=== PATIENT | female | born 1985 | race Caucasian/White ===

== ENCOUNTER → 2016-11-05 | Outpatient (CLI) | payer OTHER ==
[~2016-11-05] MED LIST: ACET-749 PO; LEVO-519 PO; MTR600X PO; PRENTAB26 PO; SYN125 PO
[2016-11-05 18:47] LABS: URINE APPEARANCE TURBID (CLEAR); URINE BILIRUBIN NEG (NEG); URINE COLOR YELLOW; URINE NITRITE NEG (NEG); URINE PH 5.5 (4.5-7.5); URINE SPECIFIC GRAVITY 1.028 (1.000-1.030); UROBILINOGEN NEG (NEG)
[2016-11-05 18:49] LABS: MANUAL MICROSCOPIC REQUIRED? NO; REVIEW REQ? NO
== END | disposition home or self-care (01) ==
LOC: C.LABSPEC 17:55
PROVIDERS: ATTEND Obstetrics & Gynecology
DX: O09.40 Supervision of pregnancy with grand multiparity, unspecified trimester (principal)

== ENCOUNTER → 2016-11-12 | Outpatient (CLI) | payer OTHER ==
[2016-11-12 11:18] LABS: BASO % 0.2 %; BASO ABS # 0.01 K/uL (0-0.2); COMPLETE YES; EOS % 0.6 %; HEMATOCRIT 37.4 % (37-47); IG% 0.2 %; LYMPH ABS # 1.56 K/uL (1.2-3.4); MEAN CORPUSCULAR HEMOGLOBIN 31.3 pg (25-34); MEAN CORPUSCULAR HGB CONC 35.6 g/dl (32-36); MEAN PLATELET VOLUME 9.6 fL (7.4-10.4); PLATELET COUNT 159 K/uL (130-400); RED BLOOD COUNT 4.25 M/uL (4.2-5.4); WHITE BLOOD COUNT 5.03 K/uL (4.8-10.8)
[2016-11-12 11:50] LABS: THYROID STIMULATING HORMONE 1.9 uIu/ml (0.300-4.500)
== END | disposition home or self-care (01) ==
LOC: C.LAB1850 10:39
PROVIDERS: ATTEND Family Medicine
DX: E03.9 Hypothyroidism, unspecified (principal); O99.280 Endocrine, nutritional and metabolic diseases complicating pregnancy, unspecified trimester; O09.41 Supervision of pregnancy with grand multiparity, first trimester; J01.90 Acute sinusitis, unspecified

== ENCOUNTER → 2016-11-12 | Outpatient (CLI) | payer OTHER ==
[2016-11-16 11:57] LABS: CHLAMYDIA TRACH RNA*** NOT DETECTED (NOT DETECTED); GC (NEIS GONORRHOEAE)RNA** NOT DETECTED (NOT DETECTED)
== END | disposition home or self-care (01) ==
LOC: C.LABSPEC 14:15
PROVIDERS: ATTEND Obstetrics & Gynecology
DX: O09.41 Supervision of pregnancy with grand multiparity, first trimester (principal)

== ENCOUNTER → 2016-11-12 | Outpatient (CLI) | payer OTHER | END | disposition home or self-care (01) | LOC: C.PAPS 08:11 | PROVIDERS: ATTEND Obstetrics & Gynecology | DX: O09.41 Supervision of pregnancy with grand multiparity, first trimester (principal) ==

== ENCOUNTER → 2016-12-05 | Outpatient (CLI) | payer OTHER | END | disposition home or self-care (01) | LOC: C.LABBC 09:05 | PROVIDERS: ATTEND Internal Medicine | DX: R05 Cough (principal) ==

== ENCOUNTER → 2016-12-21 | Outpatient (CLI) | payer OTHER | END | disposition home or self-care (01) | LOC: C.LAB1850 16:36 | PROVIDERS: ATTEND Family Medicine | DX: E03.9 Hypothyroidism, unspecified (principal); O99.280 Endocrine, nutritional and metabolic diseases complicating pregnancy, unspecified trimester ==

== ENCOUNTER → 2016-12-22 | Outpatient (CLI) | payer OTHER ==
[2016-12-22 18:01] LABS: GTGD 50 Grams
[2016-12-28 17:00] LABS: AFP CONCENTRATION 23.5 NG/ML; AFP MULTIPLE OF MEDIAN 0.71; AFPTS GESTATIONAL AGE 16.9 WEEKS; AFPTS INSULIN DEP DIABETIC? NO; AFPTS MATERNAL WT 172 LBS; ALPHA-FETOPROTEIN RACE CAUCASIAN=W; HISTORY OF NTD NO; REPEAT SAMPLE? NO
== END | disposition home or self-care (01) ==
LOC: C.LAB1850 13:49
PROVIDERS: ATTEND Obstetrics & Gynecology
DX: O09.42 Supervision of pregnancy with grand multiparity, second trimester (principal); Z3A.00 Weeks of gestation of pregnancy not specified

== ENCOUNTER → 2017-01-13 | Outpatient (CLI) | payer OTHER ==
[2017-01-13 12:41] LABS: THYROID STIMULATING HORMONE 1.43 uIu/ml (0.300-4.500)
== END | disposition home or self-care (01) ==
LOC: C.LAB1850 10:26
PROVIDERS: ATTEND Internal Medicine Endocrinology, Diabetes & Metabolism
DX: E03.9 Hypothyroidism, unspecified (principal)

== ENCOUNTER → 2017-02-19 | Outpatient (CLI) | payer OTHER ==
[2017-02-19 10:08] LABS: THYROID STIMULATING HORMONE 0.974 uIu/ml (0.300-4.500)
== END | disposition home or self-care (01) ==
LOC: C.LAB1850 08:46
PROVIDERS: ATTEND Internal Medicine Endocrinology, Diabetes & Metabolism
DX: E03.9 Hypothyroidism, unspecified (principal)

== ENCOUNTER → 2017-03-22 | Outpatient (CLI) | payer OTHER ==
[2017-03-22 12:22] LABS: HEMATOCRIT 38.2 % (37-47)
[2017-03-22 12:26] LABS: URINE APPEARANCE CLEAR (CLEAR); URINE BILIRUBIN NEG (NEG); URINE COLOR YELLOW; URINE EPITHELIAL CELL AUTO >30 /lpf (0-5); URINE NITRITE NEG (NEG); URINE PH 7.5 (4.5-7.5); URINE SPECIFIC GRAVITY 1.015 (1.000-1.030); UROBILINOGEN NEG (NEG)
[2017-03-22 12:36] LABS: MANUAL MICROSCOPIC REQUIRED? NO; REVIEW REQ? NO
[2017-03-22 15:05] LABS: GTGD 50 Grams
== END | disposition home or self-care (01) ==
LOC: C.LAB1850 09:44
PROVIDERS: ATTEND Obstetrics & Gynecology
DX: O09.42 Supervision of pregnancy with grand multiparity, second trimester (principal); Z3A.00 Weeks of gestation of pregnancy not specified

== ENCOUNTER → 2017-03-23 | Outpatient (CLI) | payer OTHER ==
[2017-03-23 14:13] LABS: THYROID STIMULATING HORMONE 0.292 uIu/ml (0.300-4.500)
[2017-03-27 19:09] LABS: TSI 127 % baseline (<140)
== END | disposition home or self-care (01) ==
LOC: C.LABBC 09:37
PROVIDERS: ATTEND Internal Medicine Endocrinology, Diabetes & Metabolism
DX: E03.9 Hypothyroidism, unspecified (principal); Z86.39 Personal history of other endocrine, nutritional and metabolic disease

== ENCOUNTER → 2017-05-10 | Outpatient (CLI) | payer OTHER | END | disposition home or self-care (01) | LOC: C.LABSPEC 15:20 | PROVIDERS: ATTEND Obstetrics & Gynecology | DX: O09.43 Supervision of pregnancy with grand multiparity, third trimester (principal) ==

== ENCOUNTER → 2017-05-10 | Outpatient (CLI) | payer OTHER ==
[2017-05-10 15:39] LABS: THYROID STIMULATING HORMONE 1.76 uIu/ml (0.300-4.500)
== END | disposition home or self-care (01) ==
LOC: C.LAB1850 14:02
PROVIDERS: ATTEND Internal Medicine Endocrinology, Diabetes & Metabolism
DX: E03.9 Hypothyroidism, unspecified (principal)

== ENCOUNTER 2017-06-09 22:39 | Inpatient (IN) | payer OTHER ==
[~2017-06-09] VITALS: Ht 175.3 cm; Wt 88.2 kg
[~2017-06-09 22:39] MED LIST changes: -LEVO-519 PO
[2017-06-09] MEDS ORDERED: LACTATED RINGER'S 1000ML 1,000 ML IV PRN (22:48)
[2017-06-09] MEDS ORDERED: LACTATED RINGER'S 1000ML 1,000 ML IV SCH (22:48)
[2017-06-09] MEDS ORDERED: EpHEDrine SULFATE INJ 50 MG/ML AMP ONE (22:53)
[2017-06-09] MEDS ORDERED: BUPIVACAINE 0.25% 30 ML VIAL ONE (22:53)
[2017-06-09] MEDS ORDERED: FENTANYL 2MCG/ML ROPIV 1.25MG/ML 100ML BAG EPI ONE (22:53)
[2017-06-09] MEDS ORDERED: FENTANYL CITRATE INJ 50 MCG/1 ML 2 ML VIAL ONE (22:54)
[2017-06-09 22:59] VITALS: Ht 175.3 cm; Wt 88.2 kg
[2017-06-09] MEDS ORDERED: OXYTOCIN 30 UNITS/500ML NSS IV ONE (23:10)
[2017-06-09 23:15] LABS: HEMATOCRIT 40.5 % (37-47); MEAN CELL VOLUME 89.8 fL (80-100); MEAN CORPUSCULAR HEMOGLOBIN 32.4 pg (25-34); PLATELET COUNT 153 K/uL (130-400); RED BLOOD COUNT 4.51 M/uL (4.2-5.4); WHITE BLOOD COUNT 8.91 K/uL (4.8-10.8)
[2017-06-09] MEDS ORDERED: BENZOCAINE 20% AER SPR 82.5 GM CAN EXT PRN (23:30)
[2017-06-09] MEDS ORDERED: OXYTOCIN 30 UNITS/500ML NSS IV PRN (23:30)
[2017-06-09] MEDS ORDERED: DIPHTHERIA/TETANUS/PERTUSSIS 0.5 ML SYR/VIAL IM. ONE (23:30)
[2017-06-09] MEDS ORDERED: LANOLIN OINT EXT PRN ×2 (23:30)
[2017-06-09] MEDS ORDERED: SUPERCREAM 0.870 % 15GM JAR EXT PRN (23:30)
[2017-06-09] MEDS ORDERED: HYDROCORTISONE ACETATE 25 MG SUPP PR PRN (23:30)
[2017-06-09] MEDS ORDERED: ACETAMINOPHEN/CODEINE 300/30MG TAB PO PRN ×2 (23:30)
[2017-06-09] MEDS ORDERED: OXYCODONE/ACETAMINOPHEN 5-325 TAB PO PRN (23:30)
[2017-06-09] MEDS ORDERED: ACETAMINOPHEN 325 MG TAB PO PRN (23:30)
[2017-06-10] VITALS (7 sets, daily range): BP systolic 112–135; BP diastolic 69–86; PULSE 64–86; TEMP 36.4–37; O2SAT 97–98
[2017-06-10] MEDS: IBUPROFEN 600 MG TAB PO PRN ×3 (00:01→21:56)
[2017-06-10] MEDS ORDERED: LEVO-519 PO (00:46)
--- NOTE | 2017-06-10 00:53 | DELIVERY SUMMARY ---
DATE OF OPERATION: 06/09/2017 The patient presented late in the evening of 06/09/2017 in active labor. She is a patient who had had 4 prior VBACs and 1 prior . She wishes . She arrived at 6 cm, group B strep negative, membranes intact. Initially we te labs. heart rate category 1. Group B strep negative. The patient quickly progressed to 9 cm. At this stage, I felt it was unlikely that epidural would be from a time point of view, even accessible for her as she was moving along so quickly. AROM was performed for clear fluid and then she delivered soon afterwards by pushing, delivering a baby in right occiput anterior. Mouth and the nares suctioned. Clear fluid, no nuchal cord. No excessive force used. Live vigorous male . Cord clamped and cut. Cord gases obtained, cord blood obtained. Placenta removed with gentle traction. IV Pitocin started. Estimated blood loss 100 mL. Sponge and instrument counts correct. No tearing was noted. I attest to the content of the Intraoperative Record and any orders documented therein. Any exception s are noted below.
[2017-06-10 06:40] LABS: HEMATOCRIT 38.1 % (37-47)
--- NOTE | 2017-06-10 07:21 | Progress Note ---
Subjective Jun 10, 2017. Subjective conversation w/ patient, physical exam, chart review, lab review Ambulation: ambulating normally Voiding: no voiding problems Passing Gas: Yes Diet Tolerance: Regular Diet Lochia: Moderate Feeding Type: Breast Feeding Pain: controlled Review of Systems Respiratory: No shortness of breath Cardiac: No chest pain Abdomen: No nausea, No vomiting Female : No dysuria Objective Vital Signs Date Time Temp Pulse Resp B/P (MAP) Pulse Ox O2 Delivery O2 Flow Rate FiO2 06/10/17 04:15 36.9 76 18 122/72 (89) Room Air 06/10/17 02:45 37.0 18 130/77 (94) Room Air 06/10/17 02:40 Room Air Physical Exam General Appearance: WELL-APPEARING, WD/WN, NO APPARENT DISTRESS Respiratory/Chest: lungs clear Cardiovascular: regular rate, rhythm Abdomen: normal bowel sounds, soft Fundus: Firm, Non-Tender, Relation to Umbilicus (1 below U) Extremities: no calf tenderness Laboratory Results Last 24 Hours Test 06/09/17 23:04 06/10/17 06:21 White Blood Count 8.91 K/uL Red Blood Count 4.51 M/uL Hemoglobin 14.6 g/dL 12.7 g/dL Hematocrit 40.5 % 38.1 % Mean Corpuscular Volume 89.8 fL Mean Corpuscular Hemoglobin 32.4 pg Mean Corpuscular Hemoglobin Concent 36.0 g/dl RDW Standard Deviation 42.7 fL RDW Coefficient of Variation 13.0 % Platelet Count 153 K/uL Mean Platelet Volume 10.0 fL Assessment and Plan Post- Day#: 1 Continue Routine Care: - Vital Signs reviewed and WNL. - Hemoglobin 12.7 - Blood Type: O+, GBS-, Rubella equivocal - will require immunization. - Pt is doing well clinically. - Encourage Ambulation, Monitor and Control pain with Motrin PRN, Resume regular diet, Monitor Lochia - Encourage Breast Feeding. - Continue routine post care. ESTEE DAWSON PGY1 FM RESIDENT Resident Physician Supervision Note: I interviewed and examined the patient. Discussed with Dr. Dawson and agree with findings and plan as documented in the note. Any exceptions or clarifications are listed here: [None] Documented By: Umesh Coleman Resident Tracking Resident Involvement: Resident Care Provided Care Provided: OB Delivery
[2017-06-10] MEDS: LEVOTHYROXINE 137 MCG TAB PO SCH (08:14)
[2017-06-10] MEDS: DOCUSATE SODIUM 100 MG CAP PO SCH ×2 (08:14→19:38)
[2017-06-10] MEDS: PRENATAL VITAMIN TAB PO SCH (08:14)
--- NOTE | 2017-06-10 10:25 | Discharge Instructions ---
Discharge Instructions Date of Service Jun 10, 2017. Admission Reason for Admission: Check Labor Discharge Discharge Diagnosis / Problem: VAGINAL DELIVERY Discharge Goals Goal(s): Routine recovery after delivery Medications Continue Dispensed Medications: supercream, dermaplast, tucks, lansinoh Activity Recommendations Activity Limitations: per Instructions/Follow-up section . Instructions / Follow-Up Instructions / Follow-Up ACTIVITY RECOMMENDATIONS: * Gradual return to full activity over the next 2-3 weeks. * No lifting - nothing heavier than baby over the next 2-3 weeks. * Do not engage in vigorous exercise, sexual activity or sports until cleared by your physician. * Do not drive or operate any motorized equipment until cleared by your physician. * You may shower/bathe daily. MEDICATIONS: For discomfort or pain, you may use Acetaminophen (Tylenol), Ibuprofen (Advil), or Naproxen (Aleve) following the package directions. For constipation you may use Colace following the package directions. BREAST CARE: If you are not breast feeding: * Wear a supportive bra 24 hours a day for one to two weeks. * Avoid stimulating your breasts and nipples as much as possible during the first few weeks after delivery. * When taking a shower, have the warm water hit your back, not breasts. * When your breasts feel full, apply ice packs. Usually three to four times a day helps ease the discomfort. * Take a mild pain medication (Tylenol / Motrin) when you are uncomfortable. If breast feeding: * Use breast milk to lubricate nipples. Lansinoh cream may be used for sore nipples. You do not need to remove cream prior to breast feeding. If using a different brand of cream, check the label for directions regarding removal of cream prior to nursing. * Wear a supportive bra. * If having problems with breasts or breast feeding, call a datapower consultant or your health care provider. EPISIOTOMY CARE: After delivery, if you have an episiotomy (stitches), the following steps will ease discomfort and aid healing. * For the first 24 hours after delivery, place ice packs next to your episiotomy to help reduce swelling. * After the first 24 hour-period, sitz baths, either portable or in the tub, are suggested. A shower with a shower arm sprayed over the episiotomy may be comforting. * Pat care should be done after each voiding and bowel movement. Squirt warm water from a plastic bottle over the perineum (region of the body between the anus and urinary opening) and pat dry. * Use Dermoplast to ease discomfort. Shake container. [place] directly over the episiotomy. Place a Tucks on a clean sanitary pad next to your episiotomy. SPECIAL CARE INSTRUCTIONS: When you are discharged from the hospital, it is important for you to follow the instructions listed below: * During the first week at home, you should be able to care for yourself and your baby. In addition, the usual light household activities are encouraged. * Limit your activities to the way you feel. Do not try to clean the house or move furniture. Be sensible. * If you actively engage in sports and have done so up until the time of your delivery, you may resume these activities as soon as you feel able. This may take up to one month or even longer. Use good judgment. * Continue to take your vitamins for at least six weeks after the of your baby. * Your diet need not be limited unless you were on a special diet before your delivery. Breast-feeding mothers need around 2500 calories per day and at least 64-80 ounces of fluid per day (8 to 10 glasses). * You should eat foods from the four major food groups. Crash diets or fad diets are to be avoided. Eating lean meats, fresh fruits and vegetables, low-fat dairy products, high fiber foods and a regular exercise program, will help you get back to your pre- weight without putting your health at risk. * Constipation is sometimes a problem after delivery. Take a mild laxative as needed. If breast feeding, Milk of Magnesia is acceptable to use. You may use a suppository or Fleets enema if no episiotomy. * A daily shower or tub bath is suggested. Be sure to thoroughly and gently dry the perineum. * A bloody vaginal discharge will usually continue until around four weeks post . A small amount of bleeding may continue for as long as six weeks. Vaginal discharge changes from the bright red bleeding after delivery to pink then brownish and finally yellowish-pink before becoming white and disappearing. * Bleeding may increase with activity. Your first period may come in 4-8 weeks. If you are breast feeding, your period may be delayed even longer. * Keats (sex) can begin whenever both you and your partner feel comfortable and do not have any form of genital infection. It is recommended that you wait at least six weeks for internal and external healing to occur. If you have questions, please talk to your health care practitioner. A condom should be used to prevent infection and . * Foreplay, gentle intercourse and lubrication is very important the first several times to prevent pain. A water-based lubricant such as K-Y jelly or Astroglide may be used. * If you have RH negative blood and your baby is RH positive, you will receive RHOGAM by injection prior to discharge. The nurse will give you a card to keep with you that has the date and place that you received RHOGAM after delivery. * During your care, you had a Rubella screen done to check for the presence of rubella antibodies in your blood. If your test was negative, you will receive a Rubella vaccine prior to discharge. This vaccine may cause a fever, soreness at the injection site and flu-like symptoms. If these symptoms persist, notify your health care practitioner. is not advised for one month after a Rubella vaccine. * Verbalizes understanding of car seat law as reviewed with patient nursing. * Car Seat hand-out given and reviewed with patient by nursing. * Shaken baby information reviewed with patient by nursing. Call you doctor if: * Heavy bleeding (saturating several pads an hour) or passing clots the size of your fist. * A fever >101 degrees F (38.3 degrees C) on two occasions four hours apart and /or chills. * Unusual pain in the pelvic or vaginal areas. * "Baby Blues" lasting longer than two weeks. If you have any questions or concerns, call your health care practitioner at . FOLLOW UP VISIT: * Please call the office at to schedule a 6 week examination. It is important you keep this appointment. It is important for you to make arrangements for either yearly or twice yearly check-ups thereafter. Current Hospital Diet Patient's current hospital diet: Regular OB Diet Discharge Diet Recommended Diet: Regular Diet Pending Studies Studies pending at discharge: no Medical Emergencies . Who to Call and When: Medical Emergencies: If at any time you feel your situation is an emergency, please call 911 immediately. . Non-Emergent Contact Non-Emergency issues call your: Primary Care Provider . . "Provider Documentation" section prepared by Renay Dawson. . VTE Core Measure Inpt VTE Proph given/why not?: Treatment not indicated
[2017-06-10] MEDS ORDERED: MEASLES, MUMPS & RUBELLA VIRUS VIAL SQ. ONE (10:30)
[2017-06-10] MEDS ORDERED: BISACODYL 5 MG TABEC PO SCH (20:00)
[2017-06-11 04:00] VITALS: BP 130/86; PULSE 64; TEMP 36.4; O2SAT 99
[2017-06-11] MEDS: IBUPROFEN 600 MG TAB PO PRN (04:06)
[2017-06-11 06:38] LABS: HEMATOCRIT 36.4 % (37-47); MEAN CELL VOLUME 92.4 fL (80-100); MEAN CORPUSCULAR HEMOGLOBIN 31.7 pg (25-34); MEAN CORPUSCULAR HGB CONC 34.3 g/dl (32-36); MEAN PLATELET VOLUME 10.2 fL (7.4-10.4); PLATELET COUNT 133 K/uL (130-400); RED BLOOD COUNT 3.94 M/uL (4.2-5.4); WHITE BLOOD COUNT 7.15 K/uL (4.8-10.8)
[2017-06-11] MEDS ORDERED: BISACODYL 10 MG SUPP PR PRN (07:00)
[2017-06-11 07:07] VITALS: BP 112/77; PULSE 62; TEMP 36.6; O2SAT 98
[2017-06-11] MEDS: PRENATAL VITAMIN TAB PO SCH (08:10)
[2017-06-11] MEDS: DOCUSATE SODIUM 100 MG CAP PO SCH (08:10)
[2017-06-11] MEDS: LEVOTHYROXINE 137 MCG TAB PO SCH (08:10)
--- NOTE | 2017-06-11 08:11 | Progress Note ---
Subjective Jun 11, 2017. Subjective conversation w/ patient, physical exam, chart review, lab review Ambulation: ambulating normally Voiding: no voiding problems Passing Gas: Yes Diet Tolerance: Regular Diet Lochia: Moderate Feeding Type: Breast Feeding Pain: controlled Review of Systems Respiratory: No shortness of breath Cardiac: No chest pain Abdomen: No nausea, No vomiting Female : No dysuria Objective Vital Signs Date Time Temp Pulse Resp B/P (MAP) Pulse Ox O2 Delivery O2 Flow Rate FiO2 06/11/17 07:07 36.6 62 18 112/77 (89) 98 Room Air 06/11/17 04:00 36.4 64 18 130/86 (101) 99 Room Air 06/10/17 23:20 98 Room Air 06/10/17 23:20 37.0 79 18 114/69 (84) 98 Room Air 06/10/17 19:00 36.4 83 20 129/83 (98) Room Air 06/10/17 15:30 36.8 86 20 123/86 (98) Room Air 06/10/17 15:30 Room Air 06/10/17 12:50 36.9 64 18 112/71 (85) 97 Room Air Physical Exam General Appearance: WELL-APPEARING, WD/WN, NO APPARENT DISTRESS Respiratory/Chest: lungs clear, normal breath sounds Cardiovascular: regular rate, rhythm Abdomen: normal bowel sounds, soft Fundus: Firm, Non-Tender, Relation to Umbilicus (1 below U) Extremities: no calf tenderness Laboratory Results Last 24 Hours Test 06/11/17 06:08 White Blood Count 7.15 K/uL Red Blood Count 3.94 M/uL Hemoglobin 12.5 g/dL Hematocrit 36.4 % Mean Corpuscular Volume 92.4 fL Mean Corpuscular Hemoglobin 31.7 pg Mean Corpuscular Hemoglobin Concent 34.3 g/dl RDW Standard Deviation 44.9 fL RDW Coefficient of Variation 13.3 % Platelet Count 133 K/uL Mean Platelet Volume 10.2 fL Assessment and Plan Post- Day#: 2 Continue Routine Care: - Vital Signs reviewed and WNL. - Hemoglobin 12.5 TODAY - Blood Type: O+, GBS-, Rubella equivocal - will require immunization before dc. Ordered. - Pt is doing well clinically. Complains of flu-like symptoms, safe to have vaccination now. - Encourage Ambulation, Monitor and Control pain with Motrin PRN, Resume regular diet, Monitor Lochia - Encourage Breast Feeding. - Pt counselled on dc instructions. ESTEE DAWSON PGY1 FM RESIDENT Resident Physician Supervision Note: I interviewed and examined the patient. Discussed with Dr. Dawson and agree with findings and plan as documented in the note. Any exceptions or clarifications are listed here: [None] Documented By: Bebeto Patten Resident Tracking Resident Involvement: Resident Care Provided Care Provided: OB Delivery
[2017-06-11 13:26] VITALS: BP_DIAS 77; PULSE 62; TEMP 36.6
== END 2017-06-11 13:26 | disposition home or self-care (01) | DRG 775 ==
LOC: C.OPB 22:39 → C.LD 22:39 → C.OPB 22:50 → C.OBG 06-10 02:35
PROVIDERS: ADMIT Obstetrics & Gynecology; ATTEND Obstetrics & Gynecology
PROC: 10E0XZZ Delivery of Products of Conception, External Approach (ICD-10-PCS; principal; 2017-06-09)
DX: O48.0 Post-term pregnancy (principal); O62.3 Precipitate labor; Z3A.41 41 weeks gestation of pregnancy

== ENCOUNTER → 2017-12-28 | Outpatient (CLI) | payer OTHER ==
[~2017-12-28] MED LIST changes: -ACET-749 PO; +LEVO-519 PO; -MTR600X PO; -SYN125 PO
== END | disposition home or self-care (01) ==
LOC: C.LAB1850 09:50
PROVIDERS: ATTEND Internal Medicine Endocrinology, Diabetes & Metabolism
DX: E03.9 Hypothyroidism, unspecified (principal)

== ENCOUNTER 2021-03-24 07:55 | Inpatient (IN) ==
[2021-03-24] MEDS ORDERED: OXYTOCIN 30 UNITS/500 ML BAG IV PRN ×3 (08:13→15:41)
[2021-03-24] MEDS ORDERED: PENICILLIN G POTASSIUM 3 MU in DEXTROSE 5% 100 ML IV PRN (08:13)
[2021-03-24] MEDS ORDERED: PENICILLIN G POTASSIUM 6 MU in DEXTROSE 5% 250 ML IV STA (08:20)
[2021-03-24 08:35] LABS: Hematocrit (blood only) 38.5 % (37-47); Hemoglobin 13.4 g/dL (12.0-16.0); Mean Corpuscular Hemoglobin 32.2 pg (25-34); Mean Corpuscular Hgb Conc 34.8 g/dL (32-36); Mean Corpuscular Volume 92.5 fL (80-100); Mean Platelet Volume 9.9 fL (7.4-10.4); Platelet Count 137 K/uL (130-400); RDW Coefficient of Variation 12.8 % (11.5-14.5); RDW Standard Deviation 42.8 fL (36.4-46.3); Red Blood Count 4.16 M/uL (4.2-5.4); White Blood Count 8.65 K/uL (4.8-10.8)
--- NOTE | 2021-03-24 08:40 | History & Physical Report ---
Date of Service March 24, 2021 Assessment & Plan Admission and Anticipated Discharge Date Admission Date: March 24, 2021 Multiparous female with prior C/S with first then 5 successful 's for IOL because of post term start PCN G now- plan AROM close to 2nd dose of PCN G epidural analgesia when patient requests it anticipate vaginal History of Present Illness Primary Care Provider: NO PCP Patient is a 35 yo white female EDC 03/22/21 who presents for IOL because of post term . Her first delivery was a section and subsequently, she has had 5 successful 's. complicated by AMA status, hypothyroidism and GBS (+) . She has been having irregular contractions but no bloody show or SPROM. Allergies Allergy/AdvReac Type Severity Reaction Status Date / Time Sulfa (Sulfonamide Allergy Mild Hives Verified 03/21/21 14:22 Antibiotics) Home Medications Medication Instructions Recorded Confirmed Type levothyroxine 125 mcg tablet 125 mcg PO DAILY 08/21/20 03/21/21 History vit-ferrous sulfat-FA 1 tab PO DAILY 03/24/21 03/24/21 History [] Patient History Medical History Carpal bone fracture right wrist after snowboarding accident Chronic gingivitis Graves' disease Elham's thyroiditis History of giardia infection History of varicella Hyperthyroidism Hypothyroidism Hypothyroidism Polyarthropathy, inflammatory Post thyroiditis Trismus (vaginal after ) Surgical History Previous delivery affecting , antepartum Previous section (07/09/13) S/P primary low transverse S/P tonsillectomy Family History Mother Elham's thyroiditis Grandmother (Maternal) Hyperlipidemia Hypertension Grandfather (Maternal) Stroke Denies family history of Ovarian cancer Prostate cancer Myocardial infarction Breast cancer Colorectal cancer Social History Smoking Status: Never smoker Hx Alcohol Use: No Hx Substance Use: No Preferred Language: [place] Communication Ability: Effective Visual Impairment: No Limitations Hearing Ability: Normal Production Recovery Operator Required: No Beliefs That Will Affect Care: None marital status: marital status details: Sarabjit (36) [phone] Current Living Situation: Spouse Current Living Situation Comment: lives with spouse and children, 1dog, 1cat, children to change litter current occupational status: unemployed Other Information That Helps Us Care for You: No Feels Safe at Home: Yes Safety Concerns: Feels Safe At This Time Childhood Exposure to Second-Hand Smoke: No Dental Care, Regularly: Yes Physical Activity Frequency: Does not Exercise Seatbelt Use: always Sunscreen Use: Yes Assistive Devices: None Review of Systems All systems reviewed & are unremarkable except as noted in HPI & below Physical Exam Constitutional: WD/WN, vitals as above Respiratory: normal respiratory effort, lungs clear to auscultation Cardiovascular: RRR, no murmur, no edema Gastrointestinal (Abdomen): normal bowel sounds, soft, nontender, no hepatosplenomegaly Psychiatric: A+Ox3, euthymic affect Genitourinary: OB Exam Abdomen: + vertex and + estimated weight (8-9 pounds) Manual OB Exam: + cervical dilation 3 cm, + cervical effacement 70% and + station high (-3) OB Exam Monitor Tracing: + external FHT monitor used, + external uterine monitor used, + category I and + normal FHT variability Results & Data ([place]) Vital Signs (Past 12 Hours) Vital Signs Temp Pulse Resp BP 03/24/21 08:00 97.9 F 73 20 133/76 Coding Level of Care Code None
[2021-03-24] MEDS ORDERED: LEVOTHYROXINE SODIUM 125 MCG TABLET PO SCH (09:00)
[2021-03-24] MEDS: LACTATED RINGER'S 1,000 ML IV PRN ×2 (09:19→11:52)
[2021-03-24] MEDS ORDERED: fentaNYL citrate 100 MCG/2 ML VIAL ONE (11:20)
[2021-03-24] MEDS ORDERED: fentaNYL 2MCG/ML ROPIVACAINE 1.25MG/ML 100 ML BAG EPI ONE (11:20)
[2021-03-24] MEDS ORDERED: SODIUM CHLORIDE 0.9% INJ 10 ML VIAL ONE (11:20)
[2021-03-24] MEDS ORDERED: ePHEDrine sulfate 50 MG/ML AMP ONE (11:20)
[2021-03-24] MEDS ORDERED: BUPIVACAINE 0.25% 30 ML VIAL ONE (11:20)
--- NOTE | 2021-03-24 12:14 | Anesthesiology Consultation ---
Date of Service March 24, 2021 Assessment & Plan Chart Review Chart Review: Acceptable Risk for Labor Epidural Consults Requested none History Height/Weight Height: 5 ft 9 in Weight: 95.708 kg Allergies Allergy/AdvReac Type Severity Reaction Status Date / Time Sulfa (Sulfonamide Allergy Mild Hives Verified 03/21/21 14:22 Antibiotics) Medications Home Medications Medication Instructions Recorded Confirmed Last Taken levothyroxine 125 mcg tablet 125 mcg PO DAILY 08/21/20 03/24/21 03/24/21 05:00 vit-ferrous sulfat-FA 1 tab PO DAILY 03/24/21 03/24/21 03/23/21 12:00 [] Active Medications Generic Name Dose Route Start Last Admin Trade Name Freq PRN Reason Stop Dose Admin Lactated Ringer's 1,000 mls @ 125 mls/hr 03/24/21 08:13 03/24/21 11:52 Lr IV 03/26/21 08:12 125 mls/hr .Q8H PRN Administration L&D Protocol Protocol Oxytocin 30 units in 500 mls @ 7 mls/hr 03/24/21 08:33 03/24/21 11:00 Pitocin IV 03/26/21 08:32 0.42 units/hr .Q24H PRN 7 mls/hr Labor Induction/Augmentation Titration Protocol 0.42 UNITS/HR Levothyroxine Sodium 125 mcg 03/24/21 09:00 03/24/21 10:26 Levothyroxine Sodium 125 Mcg Tablet PO 04/23/21 08:59 Not Given DAILYBB JONI Past Medical History Medical History Carpal bone fracture right wrist after snowboarding accident Chronic gingivitis Graves' disease Elham's thyroiditis History of giardia infection History of varicella Hyperthyroidism Hypothyroidism Hypothyroidism Polyarthropathy, inflammatory Post thyroiditis Trismus (vaginal after ) Past Family History Family History Mother Elham's thyroiditis Grandmother (Maternal) Hyperlipidemia Hypertension Grandfather (Maternal) Stroke Denies family history of Ovarian cancer Prostate cancer Myocardial infarction Breast cancer Colorectal cancer Past Surgical History Surgical History Previous delivery affecting , antepartum Previous section (07/09/13) S/P primary low transverse S/P tonsillectomy Social History Smoking Status: Never smoker Hx Alcohol Use: No Alcohol type: wine Hx Substance Use: No Physical Exam Vital Signs Last Vital Signs Temp 36.6 C 03/24/21 08:00 Pulse 69 03/24/21 12:11 Resp 20 03/24/21 08:00 BP 106/56 L 03/24/21 12:11 Pulse Ox 98 03/24/21 12:11 Testing Laboratory Results 03/24/21 08:19 Blood Type O Positive 03/24/21 08:19 Antibody Screen NEGATIVE 03/24/21 08:19
[2021-03-24] MEDS ORDERED: ePHEDrine sulfate 50 MG/ML AMP IV PRN (12:16)
[2021-03-24] MEDS ORDERED: NALOXONE HCL 1 MG in SODIUM CHLORIDE 0.9% 1000ML 1,000 ML IV PRN (12:16)
[2021-03-24] MEDS ORDERED: fentaNYL 2MCG/ML ROPIVACAINE 1.25MG/ML 100 ML BAG EPI PRN (12:16)
[2021-03-24] MEDS ORDERED: NALOXONE HCL 0.4 MG/1 ML VIAL/CARP IV PRN (12:16)
[2021-03-24] MEDS ORDERED: diphenhydrAMINE 50 MG/ML VIAL IV PRN (12:16)
[2021-03-24] MEDS ORDERED: bisacodyL 10 MG SUPP PR PRN (15:41)
[2021-03-24] MEDS ORDERED: DIPHTHERIA/TETANUS/PERTUSSIS 0.5 ML SYR/VIAL IM ONE (15:41)
[2021-03-24] MEDS ORDERED: HYDROCORTISONE ACETATE 25 MG SUPP PR PRN (15:41)
[2021-03-24] MEDS ORDERED: SUPERCREAM 0.870% 15 GM JAR EXT PRN (15:41)
[2021-03-24] MEDS ORDERED: BENZOCAINE 20% AER SPR 82.5 GM CAN EXT PRN (15:41)
[2021-03-24] MEDS ORDERED: ACETAMINOPHEN 325 MG TAB PO PRN (15:41)
--- NOTE | 2021-03-24 15:56 | Anesthesia Procedure Note ---
Date of Service March 24, 2021 Anesthesia Post Epidural Note Vital Signs Vital Signs: Temp Pulse Resp BP Pulse Ox 36.6 C 93 H 18 119/57 L 97 03/24/21 08:00 03/24/21 15:40 03/24/21 15:39 03/24/21 15:40 03/24/21 14:41 Notes Mental Status: alert / awake / arousable Nausea / Vomiting: adequately controlled Pain: adequately controlled Airway Patency, RR, SpO2: stable & adequate BP & HR: stable & adequate Hydration State: stable & adequate Neuraxial Anesthesia: was administered and sensory block is resolving Anesthetic Complications: no major complications apparent and Pt Satisfied with anesthetic care Epidural: Removed without complications and With tip intact
[2021-03-24] MEDS: IBUPROFEN 600 MG TAB PO PRN ×2 (18:39→23:27)
[2021-03-24] MEDS: DOCUSATE SODIUM 100 MG CAP PO SCH (20:51)
[2021-03-25] MEDS: IBUPROFEN 600 MG TAB PO PRN ×2 (03:24→08:00)
[2021-03-25] MEDS ORDERED: LEVOTHYROXINE SODIUM 125 MCG TABLET PO SCH (06:30)
--- NOTE | 2021-03-25 07:49 | Obstetrical Progress Note ---
Date of Service March 25, 2021 Assessment & Plan (1) Encounter for care and examination after delivery: 35yo Day 1 s/p . Doing well. Stable for discharge Subjective Ambulation: ambulating normally Voiding: no voiding problems Passing Gas:: Yes Diet Tolerance:: regular diet Lochia:: Moderate Feeding Type:: breast feeding Physical Exam Constitutional WD/WN, vitals as above Respiratory normal respiratory effort; no respiratory distress and no labored breathing Gastrointestinal (Abdomen) Inspection/Auscultation: abdomen normal to inspection; abdomen not distended Percussion/Palpation: abdomen soft; abdomen nontender, no guarding and abdomen not rigid Genitourinary OB Exam Abdomen: + fundal height Fundus: + firm and + relation to umbilicus (Below); not tender and not boggy Results & Data ([facility]) Vital Signs (Past 12 Hours) Vital Signs Temp Pulse Pulse Resp BP Pulse Ox 03/25/21 03:15 36.5 C 67 18 110/72 97 03/24/21 23:15 36.8 C 66 18 102/67 98
[2021-03-25] MEDS ORDERED: FERROUS SULFATE 325 MG TAB PO SCH (08:00)
[2021-03-25] MEDS ORDERED: PRENATAL VITAMIN 1 TAB PO SCH (08:00)
[2021-03-25] MEDS: DOCUSATE SODIUM 100 MG CAP PO SCH (08:00)
--- NOTE | 2021-03-25 08:05 | Delivery Summary ---
PROCEDURE: Normal spontaneous vaginal delivery. SURGEON: Ivan Santillan MD. PREOPERATIVE DIAGNOSES: 1. Single intrauterine at 40 weeks 2 days gestational age. 2. Advanced maternal age. 3. History of section x1 with 5 successful vaginal births after sections. 4. Hypothyroidism. 5. Grand multiparity. 6. Group B Streptococcus positive. POSTOPERATIVE DIAGNOSES: 1. Single intrauterine at 40 weeks 2 days gestational age. 2. Advanced maternal age. 3. History of section x1 with 5 successful vaginal births after sections. 4. Hypothyroidism. 5. Grand multiparity. 6. Group B Streptococcus positive. 7. Status post procedure. ESTIMATED BLOOD LOSS: 200 mL. DRAINS: None. FLUIDS: Continuous lactated Ringer. URINE OUTPUT: Not measured. COMPLICATIONS: None. FINDINGS: Viable male infant with weight and Apgars pending. DESCRIPTION OF PROCEDURE: The patient progressed to 10 cm dilated, 100% effaced, positive 2 station , pushed over intact perineum with epidural anesthesia and delivered a viable male infant with weight and Apgars as noted above. Head of the delivered in direct OP position, restituted to left transverse. No nuchal cord was noted, body and shoulders quickly followed. was noted to be vigorous soon after delivery and a 1 minute delayed cord clamping was initiated. The cord was then d ouble clamped and cut. remained on maternal abdomen, was continued to be vigorous. Cord blo od was obtained. Attention was then turned to delivery of the placenta, which was delivered intact, 3-vessel cord, gentle cord traction. On inspection of the perineum, vagina, cervix, there was noted to be no lacerations. Sponge and instrument counts were correct at the completion of the case. Both mother and stable in the immediate post-delivery period. Job ID: [id number]
[2021-03-25] MEDS ORDERED: bisacodyL 5 MG TABEC PO SCH (20:00)
[2021-03-26] MEDS ORDERED: LEVOTHYROXINE SODIUM 125 MCG TABLET PO SCH (06:30)
== END 2021-03-25 15:55 | disposition home or self-care (01) | DRG 807 ==
LOC: 4S1 07:57 → 4S2 17:42

== ENCOUNTER 2024-02-16 07:05 | Inpatient (IN) ==
[2024-02-16] MEDS ORDERED: OXYTOCIN 30 UNITS/NSS 30 UNITS/500 ML BAG IV PRN ×3 (07:40→21:58)
[2024-02-16] MEDS ORDERED: LIDOCAINE 1% LOCAL 20 ML VIAL INFIL PRN (07:40)
[2024-02-16 08:03] LABS: Hematocrit (blood only) 36.9 % (37.0-47.0); Hemoglobin 13.1 g/dl (12.0-16.0); Mean Corpuscular Hemoglobin 32.6 pg (25.0-34.0); Mean Corpuscular Hgb Conc 35.5 g/dL (32.0-36.0); Mean Corpuscular Volume 91.8 fL (80.0-100.0); Mean Platelet Volume 9.9 fL (9.4-12.4); Platelet Count 120 K/uL (130-400); RDW Coefficient of Variation 13.2 % (11.5-14.5); RDW Standard Deviation 44.4 fL (36.4-46.3); Red Blood Count 4.02 M/uL (4.20-5.40); White Blood Count 7.36 K/ul (4.8-10.8)
[2024-02-16] MEDS ORDERED: SODIUM CHLORIDE 0.9% 250 ML IV PRN (08:34)
[2024-02-16] MEDS: LEVOTHYROXINE SODIUM 125 MCG TABLET PO SCH (08:49)
[2024-02-16] MEDS: LACTATED RINGER'S 1,000 ML IV PRN (08:49)
--- NOTE | 2024-02-16 10:20 | History & Physical Report ---
Date of Service February 16, 2024 Assessment & Plan (1) Hypothyroid in , antepartum: (2) Grand multiparity: (3) Elderly multigravida: (4) Previous delivery affecting , antepartum: (5) Patient desires vaginal after section (): (6) Hx successful (vaginal after ), currently : Plan 38-year-old G9, P7 presents for induction of labor at 39 weeks 2 days gestational age. Induction performed for advanced maternal age over 40 1. Fetus: Category 1 tracing 2. Labor: AROM for clear. Will evaluate for spontaneous onset of labor and will augment if needed 3. GBS negative 4. Vitals within normal limit 5. risks reviewed in detail including risks of uterine rupture at baseline 1% and increase up to 3% with induction of labor. Reviewed risks associated with and answered questions Admission and Anticipated Discharge Date Admission Date: February 16, 2024 History of Present Illness Primary Care Provider: Anita Mae is a 38-year-old at 39 weeks 2 days gestational age presents for induction of labor. complications: AMA>40@del *Anatomy Scan @ 20wks * Echo [id number] 11/02/23--normal *Growth scan @32wks--> EFW 88% *Weekly NST's @36 wks *Twice weekly NST @38wks *Weekly CHAVO's @38wks *Deliver by 40 wks----IOL 02/15 Hypothyroid *Check TFTs Q4wks 2007, 6 Grand Multip--7 deliveries covid unvaccinated Rubella Non Immune *PPX MMR OB Labs: Blood Type O Positive 08/06/23 Antibody Screen NEGATIVE 08/06/23 Hemoglobin 13.0 g/dl (12.0-16.0) 12/04/23 Hematocrit 38.2 % (37.0-47.0) 12/04/23 Mean Corpuscular Volume 89.5 fL (80.0-100.0) 08/06/23 Platelet Count 158 K/uL (130-400) 08/06/23 Rubella IgG Antibody Non Immune (Immune) L 08/06/23 Rapid Plasma Reagin Nonreactive (Nonreactive) 08/06/23 Hepatitis B Surface Antigen Neg (Neg) 08/22/20 Hepatitis B Surface Antigen. NON-REACTIVE (NON-REACTIVE) 08/06/23 Hepatitis C Antibody (EIA) NON-REACTIVE (NON-REACTIVE) 08/06/23 HIV (1&2) Ab and P24 Ag, 4th Gener Neg (Neg) 08/22/20 HIV (1&2) Ag and Ab Confirmation NON-REACTIVE (NON-REACTIVE) 08/06/23 Glucose 1 Hour 50 gm Load 148 mg/dl (70-130) H 09/10/23 OB Optional Labs: Chlamydia trachomatis RNA Not Detected (NotDetected) 08/06/23 Neisseria gonorrhoeae RNA Not Detected (NotDetected) 08/06/23 Thyroid Stimulating Hormone (TSH) 1.095 uIu/ml (0.300-4.500) 12/04/21 Labs Reviewed: declines genetic screening, qs, afp-akh 08/06/23 Allergies Allergy/AdvReac Type Severity Reaction Status Date / Time Sulfa (Sulfonamide Allergy Mild Hives Verified 02/15/24 14:09 Antibiotics) Home Medications Medication Instructions Recorded Confirmed Type levothyroxine 125 mcg tablet 125 mcg PO DAILY 08/21/20 02/16/24 History vitamin-ferrous sulfate 1 tab PO DAILY 03/24/21 02/16/24 History 27 mg iron-folic acid 0.8 mg tablet ferrous sulfate 143 mg PO DAILY 02/16/24 02/16/24 History Patient History Medical History Carpal bone fracture Chronic gingivitis Graves' disease Elham's thyroiditis History of giardia infection History of varicella Hyperthyroidism Hypothyroidism Polyarthropathy, inflammatory Post thyroiditis (vaginal after ) Surgical History (Updated 02/16/24 @ 10:28 by Ivan Santillan MD) S/P tonsillectomy S/P primary low transverse Family History Mother Elham's thyroiditis Grandmother (Maternal) Hyperlipidemia Hypertension Grandfather (Maternal) Stroke Denies family history of Ovarian cancer Prostate cancer Myocardial infarction Breast cancer Lung cancer Colorectal cancer Social History (Updated 02/16/24 @ 08:13 by Marina F Jonathon, RN) Smoking Status: Never smoker Do You Dip or Chew Tobacco: No; Hx Alcohol Use: No Hx Substance Use: No Preferred Language: Hungarian Communication Ability: Effective Visual Impairment: Limited Hearing Ability: Normal General Internal Medicine Physician Required: No Beliefs That Will Affect Care: None marital status: marital status details: Sarabjit (37) [phone] Current Living Situation: Family Current Living Situation Comment: lives with spouse and 7 children, 2 dogs current occupational status: unemployed How many Children do You have: 7 Other Information That Helps Us Care for You: No Feels Safe at Home: Yes Safety Concerns: Feels Safe At This Time Childhood Exposure to Second-Hand Smoke: No Diet: regular caffeine: Yes Dental Care, Regularly: Yes Physical Activity Frequency: Does not Exercise Seatbelt Use: always Sunscreen Use: Yes Gender Identity: Female Assistive Devices: None Physical Exam Genitourinary: normal external appearance Manual OB Exam: + cervical dilation (3-4), + cervical effacement 70%, + station -2 and + amniotic fluid (AROM) clear OB Exam Monitor Tracing: + external FHT monitor used, + external uterine monitor used, + category I and + normal FHT variability; no early decelerations present, no late decelerations present and no variable decelera tions Results & Data Vital Signs (Past 12 Hours) Vital Signs Temp Pulse Resp BP 02/16/24 07:39 36.7 C 73 20 116/74 Code Status & VTE Plan VTE Prophylaxis Plan VTE Prophylaxis will be ordered: No Coding Level of Care Code None Diagnoses Hypothyroid in , antepartum O99.280; E03.9 Grand multiparity Z64.1 Multigravida of advanced maternal age in third trimester O09.523 Trimester: third trimester Previous delivery affecting , antepartum O34.219 Patient desires vaginal after section () O34.219 Hx successful (vaginal after ), currently O34.219 (3) Elderly multigravida Trimester: third trimester Qualified Code(s): O09.523 - Supervision of elderly multigravida, third trimester
[2024-02-16] MEDS: OXYTOCIN 30 UNITS/NSS 30 UNITS/500 ML BAG IV PRN (14:11)
--- NOTE | 2024-02-16 16:42 | Anesthesiology Consultation ---
Date of Service February 16, 2024 Assessment & Plan (1) Encounter for pre-operative examination: Chart Review Chart Review: Acceptable Risk for Labor Epidural History Height/Weight Height: 5 ft 9 in Weight: 94.347 kg Allergies Allergy/AdvReac Type Severity Reaction Status Date / Time Sulfa (Sulfonamide Allergy Mild Hives Verified 02/15/24 14:09 Antibiotics) Medications Home Medications Medication Instructions Recorded Confirmed Last Taken levothyroxine 125 mcg tablet 125 mcg PO DAILY 08/21/20 02/16/24 02/16/24 06:00 vitamin-ferrous sulfate 1 tab PO DAILY 03/24/21 02/16/24 02/13/24 14:00 27 mg iron-folic acid 0.8 mg tablet ferrous sulfate 143 mg PO DAILY 02/16/24 02/16/24 02/13/24 14:00 Active Medications Generic Name Dose Route Start Last Admin Trade Name Freq PRN Reason Stop Dose Admin Lactated Ringer's 1,000 mls @ 125 mls/hr 02/16/24 07:40 02/16/24 16:16 Lr IV 02/18/24 07:39 999 mls/hr .Q8H PRN Administration L&D Protocol Protocol Oxytocin 30 units in 500 mls @ 10 mls/hr 02/16/24 14:02 02/16/24 16:30 Pitocin 30 Units/Nss IV 02/18/24 14:01 0.6 units/hr .Q24H PRN 10 mls/hr Labor Induction/Augmentation Titration Protocol 0.6 UNITS/HR Levothyroxine Sodium 125 mcg 02/16/24 08:00 02/16/24 08:49 Levothyroxine Sodium 125 Mcg Tablet PO 03/17/24 07:59 Not Given DAILYBB JONI Past Medical History Medical History Hyperthyroidism Post thyroiditis Polyarthropathy, inflammatory History of varicella History of giardia infection Carpal bone fracture right wrist after snowboarding accident Chronic gingivitis Hypothyroidism (vaginal after ) Past Family History Family History Mother Elham's thyroiditis Grandmother (Maternal) Hyperlipidemia Hypertension Grandfather (Maternal) Stroke Denies family history of Ovarian cancer Prostate cancer Myocardial infarction Breast cancer Lung cancer Colorectal cancer Past Surgical History Surgical History S/P tonsillectomy S/P primary low transverse Social History Smoking Status: Never smoker Do You Dip or Chew Tobacco: No Hx Alcohol Use: No Hx Substance Use: No substance use type: does not use Physical Exam Vital Signs Last Vital Signs Temp 36.8 C 02/16/24 15:00 Pulse 76 02/16/24 15:50 Resp 20 02/16/24 15:00 BP 98/61 L 02/16/24 15:50 Testing Laboratory Results 02/16/24 07:45 Blood Type O Positive 02/16/24 07:45 Antibody Screen NEGATIVE 02/16/24 07:45
[2024-02-16] MEDS ORDERED: SODIUM CHLORIDE 0.9% PF INJ 10 ML VIAL EPI PRN (17:19)
[2024-02-16] MEDS ORDERED: NALOXONE HCL 1 MG in SODIUM CHLORIDE 0.9% 1,000 ML IV PRN (17:19)
[2024-02-16] MEDS ORDERED: ROPIVACAINE 0.5% PF 5 MG/ML 20 ML VIAL EPI PRN (17:19)
[2024-02-16] MEDS ORDERED: fentANYL 2 MCG/ML BUPIVacaine 0.125%-NSS 100ML BAG EPI PRN (17:19)
[2024-02-16] MEDS ORDERED: fentaNYL citrate PF 100 MCG/2 ML VIAL EPI PRN (17:19)
[2024-02-16] MEDS ORDERED: LIDOCAINE 2% MPF LOCAL 5 ML VIAL EPI PRN (17:19)
[2024-02-16] MEDS ORDERED: SODIUM CHLORIDE 0.9% PF INJ 10 ML VIAL EPI STA (17:19)
[2024-02-16] MEDS ORDERED: ePHEDrine sulfate 50 MG/ML AMP IV PRN (17:19)
[2024-02-16] MEDS ORDERED: NALOXONE HCL 0.4 MG/1 ML VIAL/CARP IV PRN (17:19)
[2024-02-16] MEDS ORDERED: fentaNYL citrate PF 100 MCG/2 ML VIAL EPI STA (17:19)
[2024-02-16] MEDS ORDERED: BUPIVACAINE 0.25% PF 30 ML VIAL EPI PRN (17:19)
[2024-02-16] MEDS ORDERED: LIDOCAINE 2%/EPINEPHRINE 1:200,000 20 ML PF EPI STA (17:19)
[2024-02-16] MEDS ORDERED: BUPIVACAINE 0.25% PF 30 ML VIAL EPI STA (17:19)
[2024-02-16] MEDS ORDERED: ONDANSETRON INJ 2 MG/ML 2 ML VIAL IV PRN (17:19)
[2024-02-16] MEDS: fentANYL 2 MCG/ML BUPIVacaine 0.125%-NSS 100ML BAG ONE (17:21)
[2024-02-16] MEDS: LIDOCAINE 2%/EPINEPHRINE 1:200,000 20 ML PF ONE (17:26)
[2024-02-16] MEDS: SODIUM CHLORIDE 0.9% PF INJ 10 ML VIAL ONE (17:27)
[2024-02-16] MEDS: BUPIVACAINE 0.25% PF 30 ML VIAL ONE (17:31)
[2024-02-16] MEDS: fentaNYL citrate PF 100 MCG/2 ML VIAL ONE (17:32)
[2024-02-16] MEDS: ePHEDrine sulfate 50 MG/ML AMP ONE (20:22)
[2024-02-16] MEDS ORDERED: NURSING L&D Epidural Breakthrough Pain Update ONE (20:51)
[2024-02-16] MEDS ORDERED: ACETAMINOPHEN 325 MG TAB PO PRN (21:58)
[2024-02-16] MEDS ORDERED: HYDROCORTISONE ACETATE 25 MG SUPP PR PRN (21:58)
[2024-02-16] MEDS ORDERED: DIPHTHER/TETAN/PERTUS Vaccine (Tdap, Adol/Adult) 0.5mL IM ONE (21:58)
[2024-02-16] MEDS ORDERED: BENZOCAINE 20% SPRY 85 APPLN/85 GM CAN EXT PRN (21:58)
--- NOTE | 2024-02-16 22:01 | Delivery Summary ---
Vaginal Delivery Summary Date of Service February 16, 2024 Vaginal Delivery Summary Patient progressed to 10 cm dilated 100s and effaced +2 station pushed over intact perineum with epidural anesthesia and delivered a viable with weight and Apgars pending. Head delivered without difficulty and a single loose nuchal was noted which was easily reduced. Shoulders and body quickly followed and was noted be vigorous soon after delivery. 1 minute delayed cord clamping was initiated after which the cord was double clamped and cut. Cord blood obtained. Attention was turned to deliver the placenta which delivered intact with three-vessel cord with gentle cord traction. Inspection of perineum vagina cervix noted no lacerations. Sponge and instrument counts are correct at completion of the case. Both mother and stable in the immediate postdelivery timeframe. No complications noted and total blood loss per QBL. [facility] Vaginal Delivery Charge Delivery Type Details:
--- NOTE | 2024-02-17 07:01 | Obstetrical Progress Note ---
Date of Service <Cruz Snow MD - Last Filed: 02/17/24 08:36> February 17, 2024 Assessment & Plan <Cruz Snow MD - Last Filed: 02/17/24 08:36> (1) (normal spontaneous vaginal delivery): Plan 38 yo , status post on 02/15. - Pt doing well clinically. Feels well today. Eating well, voiding well, ambulating well. Pain well controlled with PRN pain meds. - Routine care -- OOB, ambulation, diet progression as tolerated - Due to patient's Rubella Non-Immune status, counseled her to receive MMR vaccine before discharge to provide increased level of protection for . Patient still considering at this time. Vital Signs reviewed and WNL. (Tmax at 36.7) Hemoglobin Reviewed. 13.1 (02/17/24) __ (today). Blood Type: O+, GBS-, Rubella Non-Immune. Encourage ambulation, monitor and control pain with Motrin PRN, resume regular diet, monitor lochia. Breast feeding encouraged. After discharge will have 6 week follow-up with Dr. Santillan. Pt counselled on discharge instructions, in event they are going home that day. <Ivan Santillan MD - Last Filed: 02/18/24 10:14> (1) (normal spontaneous vaginal delivery): Subjective <Cruz Snow MD - Last Filed: 02/17/24 08:36> Ambulation: ambulating normally Voiding: no voiding problems Passing Gas:: Yes Diet Tolerance:: regular diet Lochia:: Moderate Feeding Type:: breast feeding Current Pain Level(1-10): 2 (cramping w/ ) Constitutional: + fatigue; no fever, no chills or no body aches Respiratory: no cough, no chest congestion or no dyspnea Cardiovascular: no chest pain or no palpitations Breast: + breast pain Gastrointestinal: + abdominal pain; no nausea, no vomiting or no diarrhea/loose stools Genitourinary (female): no dysuria, no urinary frequency or no urinary hesitancy Neurologic: no tingling or no numbness Physical Exam <Cruz Snow MD - Last Filed: 02/17/24 08:36> Constitutional WD/WN, vitals as above Respiratory normal respiratory effort, lungs clear to auscultation Cardiovascular RRR, no murmur, no edema Extremities: normal capillary refill; no calf tenderness Gastrointestinal (Abdomen) normal bowel sounds, soft, nontender, no hepatosplenomegaly Inspection/Auscultation: abdomen normal to inspection and normal bowel sounds Percussion/Palpation: + abdomen tender Psychiatric A+Ox3, euthymic affect Results & Data <Cruz Snow MD - Last Filed: 02/17/24 08:36> Vital Signs (Past 12 Hours) Vital Signs Temp Pulse Pulse Resp BP BP Pulse Ox 02/17/24 04:40 36.4 C L 65 18 107/71 97 02/17/24 00:40 36.5 C 70 20 117/79 98 02/17/24 00:07 74 117/60 02/16/24 23:57 65 02/16/24 23:57 114/55 L 02/16/24 23:37 65 02/16/24 23:37 105/56 L 02/16/24 23:33 64 02/16/24 23:33 121/55 L 02/16/24 23:22 18 02/16/24 23:22 18 02/16/24 23:06 61 02/16/24 23:06 106/60 02/16/24 22:52 18 02/16/24 22:52 18 02/16/24 22:52 89 02/16/24 22:52 116/64 02/16/24 22:36 18 02/16/24 22:36 18 02/16/24 22:36 68 02/16/24 22:36 107/61 02/16/24 22:33 69 02/16/24 22:33 106/55 L 02/16/24 22:21 77 02/16/24 22:21 119/71 02/16/24 22:21 18 02/16/24 22:21 18 02/16/24 22:07 18 02/16/24 22:07 18 02/16/24 22:07 66 02/16/24 22:07 114/70 02/16/24 21:52 18 02/16/24 21:52 18 02/16/24 21:52 60 02/16/24 21:52 100/55 L 02/16/24 21:51 99 02/16/24 21:51 61 02/16/24 21:46 98 02/16/24 21:46 84 02/16/24 21:41 99 02/16/24 21:41 65 02/16/24 21:36 98 02/16/24 21:36 65 02/16/24 21:31 98 02/16/24 21:31 65 02/16/24 21:26 96 02/16/24 21:26 59 L 02/16/24 21:25 60 02/16/24 21:25 103/58 L 02/16/24 21:21 97 02/16/24 21:21 75 02/16/24 21:21 93 02/16/24 21:21 85 02/16/24 21:16 94 02/16/24 21:16 90 02/16/24 21:15 84 L 02/16/24 21:15 78 02/16/24 21:11 97 02/16/24 21:11 59 L 02/16/24 21:06 98 02/16/24 21:06 62 02/16/24 21:01 98 02/16/24 21:01 59 L 02/16/24 20:56 97 02/16/24 20:56 63 02/16/24 20:55 57 L 02/16/24 20:55 101/59 L 02/16/24 20:51 98 02/16/24 20:51 60 02/16/24 20:46 99 02/16/24 20:46 62 02/16/24 20:41 100 02/16/24 20:41 59 L 02/16/24 20:41 109/60 02/16/24 20:36 98 02/16/24 20:36 67 02/16/24 20:31 99 02/16/24 20:31 68 02/16/24 20:26 98 02/16/24 20:26 64 02/16/24 20:26 112/65 02/16/24 20:21 98 02/16/24 20:21 71 02/16/24 20:16 97 02/16/24 20:16 59 L 02/16/24 20:12 59 L 02/16/24 20:12 123/59 L 02/16/24 20:11 97 05/15/24 20:11 69 02/16/24 20:06 99 02/16/24 20:06 57 L 02/16/24 20:01 98 02/16/24 20:01 63 02/16/24 19:56 97 02/16/24 19:56 57 L 02/16/24 19:55 59 L 02/16/24 19:55 94/54 L 02/16/24 19:51 97 02/16/24 19:51 55 L 02/16/24 19:46 99 02/16/24 19:46 60 02/16/24 19:41 97 02/16/24 19:41 60 02/16/24 19:41 56 L 02/16/24 19:41 96/44 L 02/16/24 19:36 97 02/16/24 19:36 60 02/16/24 19:31 96 02/16/24 19:31 66 02/16/24 19:27 59 L 02/16/24 19:27 99/46 L 02/16/24 19:26 97 02/16/24 19:26 57 L 02/16/24 19:21 97 02/16/24 19:21 58 L 02/16/24 19:16 98 02/16/24 19:16 69 02/16/24 19:11 98 02/16/24 19:11 66 02/16/24 19:10 63 02/16/24 19:10 112/57 L 02/16/24 19:06 97 02/16/24 19:06 66 02/16/24 19:01 98 02/16/24 19:01 60 O2 Del Method 02/17/24 04:40 Room Air 02/17/24 00:40 Room Air 02/17/24 00:07 02/16/24 23:57 02/16/24 23:57 02/16/24 23:37 02/16/24 23:37 02/16/24 23:33 02/16/24 23:33 02/16/24 23:22 02/16/24 23:22 02/16/24 23:06 02/16/24 23:06 02/16/24 22:52 02/16/24 22:52 02/16/24 22:52 02/16/24 22:52 02/16/24 22:36 02/16/24 22:36 02/16/24 22:36 02/16/24 22:36 02/16/24 22:33 02/16/24 22:33 02/16/24 22:21 02/16/24 22:21 02/16/24 22:21 02/16/24 22:21 02/16/24 22:07 02/16/24 22:07 02/16/24 22:07 02/16/24 22:07 02/16/24 21:52 02/16/24 21:52 02/16/24 21:52 02/16/24 21:52 02/16/24 21:51 02/16/24 21:51 02/16/24 21:46 02/16/24 21:46 02/16/24 21:41 02/16/24 21:41 02/16/24 21:36 02/16/24 21:36 02/16/24 21:31 02/16/24 21:31 02/16/24 21:26 02/16/24 21:26 02/16/24 21:25 02/16/24 21:25 02/16/24 21:21 02/16/24 21:21 02/16/24 21:21 02/16/24 21:21 02/16/24 21:16 02/16/24 21:16 02/16/24 21:15 02/16/24 21:15 02/16/24 21:11 02/16/24 21:11 02/16/24 21:06 02/16/24 21:06 02/16/24 21:01 02/16/24 21:01 02/16/24 20:56 02/16/24 20:56 02/16/24 20:55 02/16/24 20:55 02/16/24 20:51 02/16/24 20:51 02/16/24 20:46 02/16/24 20:46 02/16/24 20:41 02/16/24 20:41 02/16/24 20:41 02/16/24 20:36 02/16/24 20:36 02/16/24 20:31 02/16/24 20:31 02/16/24 20:26 02/16/24 20:26 02/16/24 20:26 02/16/24 20:21 02/16/24 20:21 02/16/24 20:16 02/16/24 20:16 02/16/24 20:12 02/16/24 20:12 02/16/24 20:11 02/16/24 20:11 02/16/24 20:06 02/16/24 20:06 02/16/24 20:01 02/16/24 20:01 02/16/24 19:56 02/16/24 19:56 02/16/24 19:55 02/16/24 19:55 02/16/24 19:51 02/16/24 19:51 02/16/24 19:46 02/16/24 19:46 02/16/24 19:41 02/16/24 19:41 02/16/24 19:41 02/16/24 19:41 02/16/24 19:36 02/16/24 19:36 02/16/24 19:31 02/16/24 19:31 02/16/24 19:27 02/16/24 19:27 02/16/24 19:26 02/16/24 19:26 02/16/24 19:21 02/16/24 19:21 02/16/24 19:16 02/16/24 19:16 02/16/24 19:11 02/16/24 19:11 02/16/24 19:10 02/16/24 19:10 02/16/24 19:06 02/16/24 19:06 02/16/24 19:01 02/16/24 19:01 Supervising Physician <Ivan Santillan MD - Last Filed: 02/18/24 10:14> Co-Signing Physician Notes Patient evaluated with resident and agree with the above findings and plan. Stable for discharge later this evening
--- NOTE | 2024-02-17 08:10 | Anesthesia Procedure Note ---
Date of Service February 17, 2024 Anesthesia Post Epidural Note Vital Signs Vital Signs: Temp Pulse Resp BP Pulse Ox O2 Del Method 36.4 C L 65 18 107/71 97 Room Air 02/17/24 04:40 02/17/24 04:40 02/17/24 04:40 02/17/24 04:40 02/17/24 04:40 02/17/24 04:40 Pain Intensity Abdomen: Pain Intensity: 2 Notes Mental Status: alert / awake / arousable Nausea / Vomiting: adequately controlled Pain: adequately controlled Airway Patency, RR, SpO2: stable & adequate BP & HR: stable & adequate Hydration State: stable & adequate Neuraxial Anesthesia: was administered and sensory block is resolving Anesthetic Complications: no major complications apparent and Pt Satisfied with anesthetic care Epidural: Removed without complications and With tip intact
[2024-02-17] MEDS: DOCUSATE SODIUM 100 MG CAP PO SCH (08:12)
[2024-02-17] MEDS: PRENATAL VITAMIN 1 TAB PO SCH (08:12)
[2024-02-17] MEDS: FERROUS SULFATE 325 MG TAB PO SCH (08:13)
[2024-02-17] MEDS: IBUPROFEN 600 MG TAB PO PRN (16:13)
[2024-02-17] MEDS: bisacodyL 5 MG TABEC PO SCH (21:33)
[2024-02-18] MEDS ORDERED: bisacodyL 10 MG SUPP PR PRN
== END 2024-02-17 23:40 | disposition home or self-care (01) | DRG 807 ==
LOC: 4S1 07:05 → 4E2 02-17 00:28
DX: O99.284 Endocrine, nutritional and metabolic diseases complicating childbirth; Z88.2 Allergy status to sulfonamides; O34.211 Maternal care for low transverse scar from previous cesarean delivery; Z79.890 Hormone replacement therapy; Z3A.39 39 weeks gestation of pregnancy; O69.81X0 Labor and delivery complicated by cord around neck, without compression, not applicable or unspecified; Z37.0 Single live birth; E03.9 Hypothyroidism, unspecified; Z64.1 Problems related to multiparity